=== PATIENT | male | born 1995 | race Caucasian/White ===

== ENCOUNTER 2017-08-25 00:31 | Emergency (ER) | payer MEDICAID ==
[2017-08-25 00:56] VITALS: RESP 16
[2017-08-25] MEDS ORDERED: Sodium Chloride 0.9% 500 ML IV ONE (01:04)
--- NOTE | 2017-08-25 01:06 | C.PDOC ---
History Of Present Illness 21 year old male presents to the ER with a complaint of vague lower abdominal pain with excessive gas production from below. Denies fever, urinary symptoms, nausea, vomiting, loss of appetite, constipation, diarrhea, or prior abdominal surgery. Chief Complaint (Nursing): Abdominal Pain History Per: Patient History/Exam Limitations: no limitations Onset/Duration Of Symptoms: Days Current Symptoms Are (Timing): Still Present Location Of Pain/Discomfort: RUQ, LUQ, Suprapubic Radiation Of Pain To:: None Quality Of Discomfort: Unable To Describe Associated Symptoms: denies: Fever, Chills, Nausea, Vomiting, Diarrhea, Loss Of Appetite, Constipation, Urinary Symptoms Exacerbating Factors: None Alleviating Factors: None Recent travel outside of the [place]: No Past Medical History Reviewed: Historical Data, Nursing Documentation, Vital Signs Vital Signs: Last Vital Signs Temp 98.4 F 08/25/17 02:46 Pulse 68 08/25/17 02:46 Resp 16 08/25/17 02:46 BP 101/72 08/25/17 02:46 Pulse Ox 100 08/25/17 02:58 Family History: States: Unknown Family Hx - Social History Hx Tobacco Use: No Hx Alcohol Use: No Hx Substance Use: No - Immunization History Hx Tetanus Toxoid Vaccination: Yes Hx Influenza Vaccination: Yes Hx Pneumococcal Vaccination: Yes Review Of Systems Constitutional: Negative for: Fever, Chills Cardiovascular: Negative for: Chest Pain, Palpitations Respiratory: Negative for: Shortness of Breath Gastrointestinal: Positive for: Abdominal Pain. Negative for: Nausea, Vomiting Genitourinary: Negative for: Dysuria, Hematuria Physical Exam - Physical Exam Appears: Non-toxic, No Acute Distress Skin: Normal Color, Warm, Dry Head: Atraumatic, Normacephalic Eye(s): bilateral: Normal Inspection, PERRL, EOMI Oral Mucosa: Moist Neck: Normal, Supple Chest: Symmetrical, No Tenderness Cardiovascular: Rhythm Regular, No JVD Respiratory: Normal Breath Sounds, No Rales, No Rhonchi, No Wheezing Gastrointestinal/Abdominal: Bowel Sounds (Active), Soft, Tenderness (Diffuse lower on palpation), No Guarding, No Rebound Rectal: Other (Deferred) Neurological/Psych: Oriented x3, Normal Speech ED Course And Treatment - Laboratory Results Result Diagrams: 08/25/17 01:50 08/25/17 01:50 O2 Sat by Pulse Oximetry: 100 (Room air) Pulse Ox Interpretation: Normal - Other Rad Obstructive Series X-Ray: Viewed By Me, Read By Radiologist Interpretation: Stool throughout large bowel, no obstruction, no free air. Medical Decision Making Medical Decision Making: Impression: Benign abdominal exam; blood work, urinalysis, and x-ray ordered. IV fluids administered. Obstructive series was positive for constipation, will discharge home on miralax. Disposition - Disposition Disposition: HOME/ ROUTINE Disposition Time: 02:32 Condition: GOOD Prescriptions: Polyethylene Glycol 3350 [Miralax] 17 gm PO QID 2 Days #250 ml Instructions: Constipation (ED) Forms: [facility] (Belarusian) Print Language: CAMBODIAN - POA Present On Arrival: None - Clinical Impression Clinical Impression: Constipation - Scribe Statement The provider has reviewed the documentation as recorded by the Scriblucy Warner All medical record entries made by the Scribe were at my direction and personally dictated by me. I have reviewed the chart and agree that the record accurately reflects my personal performance of the history, physical exam, medical decision making, and the department course for this patient. I have also personally directed, reviewed, and agree with the discharge instructions and disposition.
[2017-08-25 01:54] LABS: BASO % 0.8 % (0.0-2.0); EOS # 0.1 K/uL (0.0-0.7); EOS % 1.5 % (0.0-4.0); HEMOGLOBIN 13.8 g/dL (12.0-18.0); LYMPH # 2.7 K/uL (1.0-4.3); LYMPH % 47.5 % (20.0-40.0); MEAN CELL VOLUME 93.9 fL (80.0-94.0); MEAN CORPUSCULAR HEMOGLOBIN 33.5 pg (27.0-31.0); MEAN CORPUSCULAR HGB CONC 35.7 g/dL (33.0-37.0); MEAN PLATELET VOLUME 7.3 fL (7.2-11.7); MONO # 0.3 K/uL (0.0-0.8); NEUT # 2.5 K/uL (1.8-7.0); NEUT % 44.2 % (50.0-75.0); RBC 4.13 Mil/uL (4.40-5.90); RED CELL DISTRIBUTION WIDTH 12.8 % (11.5-14.5); WHITE BLOOD COUNT 5.7 K/uL (4.8-10.8)
[2017-08-25 01:58] LABS: URINE BILIRUBIN NEGATIVE (NEGATIVE); URINE BLOOD NEGATIVE (NEGATIVE); URINE CLARITY Clear (Clear); URINE COLOR Yellow (YELLOW); URINE GLUCOSE (UA) NORMAL (Normal); URINE LEUKOCYTE ESTERASE NEG Leu/uL (Negative); URINE NITRATE NEGATIVE (NEGATIVE); URINE PROTEIN NEGATIVE (NEGATIVE); URINE UROBILINOGEN NORMAL mg/dL (0.2-1.0)
[2017-08-25 02:08] LABS: ALB/GLOB RATIO 1.7 (1.0-2.1); ALBUMIN 4.3 g/dL (3.5-5.0); ALT/SGPT 22 U/L (21-72); AST/SGOT 19 U/L (17-59); BLOOD UREA NITROGEN 8 mg/dL (9-20); CALCIUM 8.3 mg/dl (8.6-10.4); GFR AFRICAN-AMERICAN > 60; GFR NON-AFRICAN AMERICAN > 60; LIPASE 136 U/L (23-300)
[2017-08-25 02:47] VITALS: BP 101/72; PULSE 68; TEMP 98.4
[2017-08-25 02:58] VITALS: O2SAT 100
--- NOTE | 2017-08-25 04:35 | RAD ---
PROCEDURE: Radiographs of the chest and abdomen (obstructive series) HISTORY: abd pain COMPARISON: CT abdomen and pelvis with contrast performed 08/08/16 TECHNIQUE: AP radiograph of the chest, with upright and supine radiographs of the abdomen. FINDINGS: CHEST: The cardiomediastinal silhouette appears within normal limits. No focal consolidation, significant pleural effusion, or definite pneumothorax identified. Please note that chest x-ray has limited sensitivity for the detection of pulmonary masses. ABDOMEN AND PELVIS: Nonobstructive bowel gas pattern. No definite free air. Moderate to severe constipation. No acute osseous abnormality is detected. IMPRESSION: Moderate to severe constipation.
== END 2017-08-25 02:52 | disposition home or self-care (01) ==
LOC: C.ER 00:31
DX: K59.00 Constipation, unspecified (principal)
CPT/HCPCS: 74022; 80053; 81001; 83690; 85025; 96360; 99283; J7040

== ENCOUNTER 2018-09-30 17:09 | Emergency (ER) | payer MEDICAID, OTHER ==
[2018-09-30 18:03] LABS: BASO % 0.9 % (0.0-2.0); EOS % 0.7 % (0.0-4.0); HEMOGLOBIN 13.8 g/dL (12.0-18.0); LYMPH # 1.5 K/uL (1.0-4.3); LYMPH % 38.8 % (20.0-40.0); MEAN CELL VOLUME 97.9 fL (80.0-94.0); MEAN CORPUSCULAR HEMOGLOBIN 32.5 pg (27.0-31.0); MEAN CORPUSCULAR HGB CONC 33.2 g/dL (33.0-37.0); MEAN PLATELET VOLUME 7.8 fL (7.2-11.7); MONO # 0.3 K/uL (0.0-0.8); MONO % 8.2 % (0.0-10.0); NEUT % 51.4 % (50.0-75.0); NRBC % 0.1 % (0.0-2.0); RBC 4.26 Mil/uL (4.40-5.90); RED CELL DISTRIBUTION WIDTH 14.4 % (11.5-14.5); WHITE BLOOD COUNT 3.9 K/uL (4.8-10.8)
[2018-09-30 18:18] LABS: ALB/GLOB RATIO 1.7 (1.0-2.1); ALBUMIN 4.9 g/dL (3.5-5.0); ALT/SGPT 42 U/L (21-72); AST/SGOT 27 U/L (17-59); BLOOD UREA NITROGEN 8 mg/dL (9-20); CALCIUM 9.4 mg/dl (8.6-10.4); GFR NON-AFRICAN AMERICAN > 60
[2018-09-30 19:24] VITALS: BP 95/69; PULSE 60; RESP 18; TEMP 99; O2SAT 98
--- NOTE | 2018-09-30 21:30 | C.PDOC ---
History Of Present Illness 23 year old male presents to the ED for evaluation of left shoulder pain for one week. Patient states his pain is worse with left arm movement. Patient thought the area was over his heart. He denies fever, chills, cough, recent travel or medical problems. Time Seen by Provider: 09/30/18 17:22 Chief Complaint (Nursing): Chest Pain History Per: Patient History/Exam Limitations: no limitations Onset/Duration Of Symptoms: Other (one week ) Current Symptoms Are (Timing): Still Present Quality: "Pain" Exacerbating Factors: Movement (left arm ) Additional History Per: Patient Past Medical History Reviewed: Historical Data, Nursing Documentation, Vital Signs Vital Signs: Last Vital Signs Temp 99.0 F 09/30/18 19:22 Pulse 60 09/30/18 19:22 Resp 18 09/30/18 19:22 BP 95/69 L 09/30/18 19:22 Pulse Ox 98 09/30/18 19:22 - Medical History PMH: No Chronic Diseases Surgical History: No Surg Hx Family History: States: Unknown Family Hx - Social History Hx Tobacco Use: No Hx Alcohol Use: No Hx Substance Use: No - Immunization History Hx Tetanus Toxoid Vaccination: Yes Hx Influenza Vaccination: Yes Hx Pneumococcal Vaccination: Yes Review Of Systems Constitutional: Negative for: Fever, Chills Respiratory: Negative for: Cough Musculoskeletal: Positive for: Shoulder Pain (left ) Physical Exam - Physical Exam Appears: Non-toxic, No Acute Distress Skin: Normal Color, Warm, Dry Head: Atraumatic, Normacephalic Eye(s): bilateral: Normal Inspection Oral Mucosa: Moist Neck: Supple Chest: Symmetrical, No Deformity, No Tenderness Cardiovascular: Rhythm Regular, No Murmur Respiratory: Normal Breath Sounds, No Rales, No Rhonchi, No Wheezing Extremity: Normal ROM, Capillary Refill (less than 2 seconds ) Neurological/Psych: Oriented x3, Normal Speech, Normal Cognition ED Course And Treatment - Laboratory Results Result Diagrams: 09/30/18 18:00 09/30/18 18:00 Lab Results: Troponin I < 0.0120 ng/mL (0.00-0.120) 09/30/18 18:00 Total Bilirubin 0.6 mg/dL (0.2-1.3) 09/30/18 18:00 AST 27 U/L (17-59) 09/30/18 18:00 ALT 42 U/L (21-72) 09/30/18 18:00 Alkaline Phosphatase 58 U/L (38-126) 09/30/18 18:00 Total Protein 7.6 g/dL (6.3-8.3) 09/30/18 18:00 Albumin 4.9 g/dL (3.5-5.0) 09/30/18 18:00 Globulin 2.8 gm/dL (2.2-3.9) 09/30/18 18:00 Albumin/Globulin Ratio 1.7 (1.0-2.1) 09/30/18 18:00 ECG Rhythm: Sinus Bradycardia Rate From EC O2 Sat by Pulse Oximetry: 98 (on RA ) Pulse Ox Interpretation: Normal Medical Decision Making Medical Decision Making: Progress: Bloodwork, CXR, EKG ordered and reviewed. Toradol IVP given. On reassessment, patient is resting comfortably, showing no signs of distress and reports an improvement in his pain. Patient is stable for discharge and is advised to follow up with his PMD/clinic within 1-2 days for further evaluation. Disposition - Disposition Referrals: [facility] Chip Finley, [Non-Staff] - Disposition: HOME/ ROUTINE Disposition Time: 18:45 Condition: GOOD Additional Instructions: MADELINE YUN, thank you for letting us take care of you today. [facility] care you received today was directed at your acute symptoms. If you were prescribed any medication, please fill it and take as directed. It may take several days for your symptoms to resolve. Return to the Emergency Department if your symptoms worsen, do not improve, or if you have any other problems. Please contact your doctor or call one of the physicians/clinics you have been referred to that are listed on the Patient Visit Information form that is included in your discharge packet. Bring any paperwork you were given at discharge with you along with any medications you are taking to your follow up visit. Our treatment cannot replace ongoing medical care by a primary care provider outside of the emergency department. Thank you for allowing the [facility] team to be part of your care today. Follow up with your primary care doctor in 2-3 days for re-evaluation and furth er management. Prescriptions: Ibuprofen [Motrin] 600 mg PO Q6 PRN #20 tab PRN Reason: Pain, Moderate (4-7) Instructions: Muscle and Bone Pain (DC) Forms: [facility] (Qatari), Work Excuse - Clinical Impression Clinical Impression: Musculoskeletal pain - Scribe Statement The provider has reviewed the documentation as recorded by the Scribe (Kadi Sandoval) Provider Attestation: All medical record entries made by the Scribe were at my direction and personally dictated by me. I have reviewed the chart and agree that the record accurately reflects my personal performance of the history, physical exam, medic al decision making, and the department course for this patient. I have also personally directed, reviewed, and agree with the discharge instructions and disposition.
--- NOTE | 2018-10-01 07:24 | RAD ---
HISTORY: chest pain COMPARISON: None available TECHNIQUE: Chest, one view. FINDINGS: LUNGS: No focal consolidation. Please note that chest x-ray has limited sensitivity for the detection of pulmonary masses. PLEURA: No significant pleural effusion identified. No definite pneumothorax . CARDIOVASCULAR: The cardiomediastinal silhouette appears within normal limits of size. No significant atherosclerotic calcification present. OSSEOUS STRUCTURES: No acute osseous abnormality identified. VISUALIZED UPPER ABDOMEN: Unremarkable. OTHER FINDINGS: None. IMPRESSION: No focal consolidation.
--- NOTE | 2018-10-01 20:20 | CARD ---
APPROVED REPORT Date of service: 09/30/2018 EKG Measurement Heart [id number] <Conclusion> Sinus bradycardia Otherwise normal ECG
== END 2018-09-30 19:35 | disposition home or self-care (01) ==
LOC: C.ER 17:09
DX: M79.18 Myalgia, other site (principal)
CPT/HCPCS: 71045; 80053; 84484; 85025; 93005; 96374; 99285; J1885